=== PATIENT | female | born 1980 | race Two or more races ===

== ENCOUNTER 2018-10-19 09:09 | Outpatient (CLI) | payer OTHER | END 2018-10-19 09:24 | disposition home or self-care (01) | LOC: LAB 09:09 | DX: E78.00 Pure hypercholesterolemia, unspecified (principal); Z13.29 Encounter for screening for other suspected endocrine disorder; R00.8 Other abnormalities of heart beat ==

== ENCOUNTER 2018-10-26 07:49 | Outpatient (CLI) | payer OTHER | END 2018-10-26 18:31 | disposition home or self-care (01) | LOC: LAB 07:49 | DX: N39.0 Urinary tract infection, site not specified (principal); E03.8 Other specified hypothyroidism; R97.1 Elevated cancer antigen 125 [CA 125]; E20.8 Other hypoparathyroidism; N95.1 Menopausal and female climacteric states; M17.0 Bilateral primary osteoarthritis of knee ==

== ENCOUNTER 2022-04-23 08:43 | Outpatient (CLI) | payer OTHER | END 2022-04-23 08:44 | disposition home or self-care (01) | LOC: RAD 08:43 | PROVIDERS: ATTEND Internal Medicine Pulmonary Disease | DX: J45.41 Moderate persistent asthma with (acute) exacerbation (principal); E83.9 Disorder of mineral metabolism, unspecified; U09.9 Post COVID-19 condition, unspecified; R06.02 Shortness of breath ==